=== PATIENT | female | born 1995 | race Caucasian/White ===

== ENCOUNTER 2021-03-19 04:58 | Emergency (ER) | payer OTHER ==
[~2021-03-19] VITALS: Ht 162.6 cm; Wt 63.5 kg
[2021-03-19 06:08] LABS: PLATELET COUNT 195 K/uL (152-353)
[2021-03-19 06:17] LABS: POTASSIUM 3.3 mmol/L (3.6-5.2)
[2021-03-19 06:48] VITALS: BP 100/57; TEMP 97.6
== END 2021-03-19 06:48 | disposition home or self-care (01) ==
LOC: ED 04:58
PROVIDERS: Family Medicine
DX: A08.39 Other viral enteritis (principal); Z20.822 Contact with and (suspected) exposure to COVID-19
CPT/HCPCS: 80053; 81025; 85027; 87635; 96360; 96374; 99284; J2405; U0003